=== PATIENT | female | born 1955 ===

== ENCOUNTER 2022-08-26 08:23 | Day surgery (SDC) | payer MEDICARE ==
[~2022-08-26] VITALS: Ht 157.5 cm; Wt 82.0 kg
[~2022-08-26 08:23] MED LIST: AMLO5 PO; CELE100 PO; Norco 5-325 Ta1 EACH PO; OMEP20ER PO; SERT50 PO
[2022-08-26] MEDS ORDERED: CETI5 (08:42)
[2022-08-26] MEDS ORDERED: CENTRUM SILVER1 EAC2 (08:43)
[2022-08-26] MEDS ORDERED: PROBIOTIC1 EA14 (08:43)
[2022-08-26 11:13] VITALS: BP 127/73
== END 2022-08-26 11:05 | disposition home or self-care (01) ==
LOC: ORSCSDS 08:23
PROVIDERS: Student in an Organized Health Care Education/Training Program
PROC: 0DBP8ZX Excision of Rectum, Via Natural or Artificial Opening Endoscopic, Diagnostic (ICD-10-PCS; principal; 2022-08-26 09:45)
PROC: 0DBL8ZX Excision of Transverse Colon, Via Natural or Artificial Opening Endoscopic, Diagnostic (ICD-10-PCS; principal; 2022-08-26 09:45)
PROC: 0DB98ZX Excision of Duodenum, Via Natural or Artificial Opening Endoscopic, Diagnostic (ICD-10-PCS; principal; 2022-08-26 09:45)
PROC: 0DBM8ZX Excision of Descending Colon, Via Natural or Artificial Opening Endoscopic, Diagnostic (ICD-10-PCS; principal; 2022-08-26 09:45)
PROC: 0DBH8ZX Excision of Cecum, Via Natural or Artificial Opening Endoscopic, Diagnostic (ICD-10-PCS; principal; 2022-08-26 09:45)
PROC: 0DBN8ZX Excision of Sigmoid Colon, Via Natural or Artificial Opening Endoscopic, Diagnostic (ICD-10-PCS; principal; 2022-08-26 09:45)
PROC: 0DB78ZX Excision of Stomach, Pylorus, Via Natural or Artificial Opening Endoscopic, Diagnostic (ICD-10-PCS; principal; 2022-08-26 09:45)
PROC: 0DBK8ZX Excision of Ascending Colon, Via Natural or Artificial Opening Endoscopic, Diagnostic (ICD-10-PCS; principal; 2022-08-26 09:45)
PROC: 0DB58ZX Excision of Esophagus, Via Natural or Artificial Opening Endoscopic, Diagnostic (ICD-10-PCS; principal; 2022-08-26 09:45)
DX: K21.9 Gastro-esophageal reflux disease without esophagitis (principal); K29.70 Gastritis, unspecified, without bleeding; K44.9 Diaphragmatic hernia without obstruction or gangrene; Z12.11 Encounter for screening for malignant neoplasm of colon; D12.3 Benign neoplasm of transverse colon; D12.2 Benign neoplasm of ascending colon; D12.0 Benign neoplasm of cecum; D12.4 Benign neoplasm of descending colon; D12.8 Benign neoplasm of rectum; K63.5 Polyp of colon; K62.1 Rectal polyp; F17.210 Nicotine dependence, cigarettes, uncomplicated; I10 Essential (primary) hypertension; Z79.899 Other long term (current) drug therapy
CPT/HCPCS: 88305; 88342; J2405; J2704; J7120

== ENCOUNTER 2022-12-16 14:00 | Inpatient (IN) | payer MEDICARE ==
[2022-12-16] VITALS (20 sets, daily range): BP systolic 89–124; BP diastolic 34–83
[~2022-12-16] VITALS: Ht 157.5 cm; Wt 82.3 kg
[~2022-12-16 14:00] MED LIST changes: +CENTRUM SILVER1 EAC2; +CETI5; +PROBIOTIC1 EA14
[2022-12-16 14:32] LABS: BASOPHILS ABSOLUTE AUTO 0.05 K/mm3 (0.00-0.23); BASOPHILS PERCENT AUTO 1 % (0-2); EOSINOPHILS ABSOLUTE AUTO 0.08 K/mm3 (0.00-0.68); EOSINOPHILS PERCENT AUTO 1 % (0-6); Hematocrit 40.1 % (33.0-51.0); Hemoglobin 13.2 g/dL (11.5-16.0); IMMATURE GRAN ABSOLUTE AUTO 0.02 K/mm3 (0.00-0.10); IMMATURE GRAN PERCENT AUTO 0 % (0-1); LYMPHOCYTES ABSOLUTE AUTO 2.46 K/mm3 (0.84-5.20); LYMPHOCYTES PERCENT AUTO 29 % (21-46); MONOCYTES ABSOLUTE AUTO 0.86 K/mm3 (0.16-1.47); MONOCYTES PERCENT AUTO 10 % (4-13); Mean Corpuscular HGB 32.5 pg (26.0-34.0); Mean Corpuscular HGB Conc 32.9 g/dL (31.5-36.5); Mean Corpuscular Volume 99 fL (80-100); Mean Platelet Volume 9.5 fL (9.1-12.4); NEUTROPHILS ABSOLUTE AUTO 5.14 K/mm3 (1.96-9.15); NEUTROPHILS PERCENT AUTO 60 % (41-73); Platelet Count 325 K/mm3 (150-400); RDW Coefficient Variation 13.9 % (11.7-14.2); Red Blood Cell Count 4.06 M/mm3 (3.80-5.20); White Blood Cell Count 8.61 K/mm3 (4.00-11.30)
[2022-12-16 14:54] LABS: Albumin, Blood 3.6 g/dL (3.4-5.0); Albumin/Globulin Ratio 1.2 (0.8-1.8); Bilirubin, Total 0.3 mg/dL (0.1-1.0); Bun/Creatinine Ratio 11.4 (12.0-20.0); Calcium, Blood 8.6 mg/dL (8.5-10.1); Creatinine, Blood 0.96 mg/dL (0.40-1.00); Globulin, Blood 3.1 g/dL (2.2-4.0); Potassium, Blood 3.7 mmol/L (3.5-5.5); Total Protein, Blood 6.7 g/dL (6.4-8.2)
[2022-12-16 18:58] LABS: Anti-Xa UFH, PHA Monitoring <0.10 IU/mL; International Normalized Ratio 1.07; Prothrombin Time Results 11.2 Sec (9.7-11.5)
--- NOTE | 2022-12-16 19:23 | NUR ---
SUMMARY Arrived to ICU 2 at 1841 from ED. Plan of care discussed with Dr Toscano ASSISTANT FITNESS MANAGER. Dr Stanton at bedside to request heparin drip started stat. Called pharmacist Angela for dosing parameters. New orders received. Bolus given. Drip started. Report given to Cece JUDD. Oriented pt to unit and plan of care including frequent lab draws and NPO after midnight. Pt verbalizes understanding. Sister and spouse at bedside deny additional questions.
--- NOTE | 2022-12-16 20:33 | NUR ---
ASSUMPTION OF CARE/ASSESSMENT: ASSUMED CARE OF PT AT 1900; PT IN BED, A&O X 4, FOLLOWING DIRECTIONS AND COMMUNICATING NEEDS APPROPRIATELY. PT CURERNTLY ON RA WITH SPO2 97<, LUNG SOUNDS ARE CLEAR THROUGHOUT, PT C/O PAIN WHEN TAKING A DEEP BREATH. PT HAS IRREGULAR RYTHYM ON MONITOR WITH FREQUENT PVC'S; HR 70-90'S, SBP 100-110'S, PT STATES SHE HAS SLIGHT CHEST DISCOMFORT WHEN TAKING TOO DEEP OF A BREATH BUT RESIDES QUICKLY; CONTINUOUS HAND MITER OPERATOR IN PLACE. HEPARIN GTT @ 15 UNITS/HR, NS @ 125 MLS/HR. PT EDUCATED REGARDING NOTIFYING THIS RN IF CHEST PAIN STARTS TO INCREASE OR IS PERSISTENT. HYPERACTIVE BOWEL SOUNDS IN ALL QUADRANTS; ABD ROUND, MILDLY DISTENDED AND PAINFUL IN THE EPIGASTRIC REGION. PT TOLERATING PO INTAKE AND WILL BE NPO AT MIDNIGHT IN PREP FOR ANGIOGRAM TOMORROW. PT ABLE TO AMBULATE TO TOILET IN ROOM; GAIT OBSERVED TO BE EVEN AND STEADY, PT DOES NOT APPEAR TO POSE A FALL RISK AT THIS TIME. URINE CLEAR AND YELLOW. SKIN OVERALL INTACT, PPP X 4, AND PT HAS FEVER AT 100.0; TYLENOL ADMINISTERED PER EMAR. PT DID COMPLAIN OF SLIGHT HEADACHE /. BED LOWERED, CALL LIGHT IN REACH.
[2022-12-17] VITALS (38 sets, daily range): BP systolic 80–153; BP diastolic 47–86
--- NOTE | 2022-12-17 01:06 | NUR ---
PT UPDATE: PT REPORTED 5/10 CHEST PAIN THAT WOKE HER UP FROM SLEEPING; PT DENIES ANY DIZZINESS OR HEADACHE BUT HAS MILD NAUSEA. RHYTHM ON MONITOR UNCHANGED, SBP STABLE. PT MEDICATED WITH ZOFRAN AND DILAUDID PER EMAR. PT EDUCATED TO CALL THIS RN IF PAIN WORSENS OR PERSISTS AFTER MED ADMINISTRATION.
--- NOTE | 2022-12-17 03:17 | NUR ---
PT UPDATE: PT IS NOW SUSTAINING SINUS BRADYCARDIA ON MONITOR WITH HR 43-60. BP STABLE WITH SBP 90'S. PT STATES MINIMAL CHEST PAIN, 1/10, AND CHEST PAIN HAS NOT BEEN WAKING HER UP FROM SLEEP AT THIS TIME. PT REMAINS A&O X 4, AND ALL OTHER VSS. PT DENIES DIZZINESS. WILL CONTINUE TO CLOSELY MONITOR.
[2022-12-17 03:22] LABS: BASOPHILS ABSOLUTE AUTO 0.06 K/mm3 (0.00-0.23); BASOPHILS PERCENT AUTO 1 % (0-2); EOSINOPHILS ABSOLUTE AUTO 0.12 K/mm3 (0.00-0.68); EOSINOPHILS PERCENT AUTO 2 % (0-6); Hematocrit 35.6 % (33.0-51.0); Hemoglobin 11.6 g/dL (11.5-16.0); IMMATURE GRAN ABSOLUTE AUTO 0.01 K/mm3 (0.00-0.10); IMMATURE GRAN PERCENT AUTO 0 % (0-1); LYMPHOCYTES ABSOLUTE AUTO 2.48 K/mm3 (0.84-5.20); LYMPHOCYTES PERCENT AUTO 31 % (21-46); MONOCYTES ABSOLUTE AUTO 0.63 K/mm3 (0.16-1.47); MONOCYTES PERCENT AUTO 8 % (4-13); Mean Corpuscular HGB 32.6 pg (26.0-34.0); Mean Corpuscular HGB Conc 32.6 g/dL (31.5-36.5); Mean Corpuscular Volume 100 fL (80-100); Mean Platelet Volume 9.7 fL (9.1-12.4); NEUTROPHILS ABSOLUTE AUTO 4.62 K/mm3 (1.96-9.15); NEUTROPHILS PERCENT AUTO 58 % (41-73); Platelet Count 307 K/mm3 (150-400); RDW Coefficient Variation 14.2 % (11.7-14.2); RDW Standard Deviation 51.8 fL (35.1-46.3); Red Blood Cell Count 3.56 M/mm3 (3.80-5.20); White Blood Cell Count 7.92 K/mm3 (4.00-11.30)
[2022-12-17 04:08] LABS: Alanine Aminotransfer (ALT/SGP 45 U/L (12-78); Albumin, Blood 3.2 g/dL (3.4-5.0); Albumin/Globulin Ratio 1.1 (0.8-1.8); Alk Phos 51 U/L (50-136); Anion Gap 3 mmol/L (6-16); Aspartate Aminotrans (AST/SGOT 58 U/L (12-37); Bilirubin, Total 0.4 mg/dL (0.1-1.0); Blood Urea Nitrogen 11 mg/dL (8-24); Bun/Creatinine Ratio 11.6 (12.0-20.0); CHOL/HDL RATIO 2.9; CO2, Blood 28 mmol/L (21-32); Calcium, Blood 7.9 mg/dL (8.5-10.1); Chloride, Blood 110 mmol/L (98-108); Cholesterol 149 mg/dL (50-200); Creatinine, Blood 0.95 mg/dL (0.40-1.00); Globulin, Blood 2.8 g/dL (2.2-4.0); Glomerular Filtration Rate 66 (60-); Glucose, Blood 104 mg/dL (70-99); HDL Cholesterol 52 mg/dL (>39); LDL/HDL RATIO 1.5; Low Density Lipoprotein Chol 79 mg/dL (0-110); Potassium, Blood 3.6 mmol/L (3.5-5.5); Sodium, Blood 141 mmol/L (136-145); Triglycerides 92 mg/dL (30-160); Very Low Density Lipoprot Chol 18 mg/dL (6-32)
--- NOTE | 2022-12-17 06:05 | NUR ---
SHIFT SUMMARY: PT REMAINS A&O X 4. SINUS POPPY ON MONITOR WITH HR 40-50'S; TWO INSTANCES PT HAS DROPPED DOWN TO 39 BUT HR QUICKLY GOES BACK UP INTO THE 40'S. PT STATES CHEST PAIN IS NOT WORSENING DURING THESE EPISODES AND STATES THAT IT HAS BEEN AT A 2/10. PT DOES NOT C/O DIZZINESS OR N/V DURING CHEST PAIN EPISODES AND NO OTHER RADIATING PAIN REPORTED. PT DENIES SOB AND HAS BEEN ON NC @ 2LPM WHILE SLEEPING DUE TO OBSERVED SLEEP APNEA. PT UP TO TOILET VARIOUS TIMES THROUGHOUT THE NIGHT; GAIT REMAINS EVEN AND STEADY. PT STATED THIS MORNING THAT SHE IS FEELING MORE WEAK THAN WHEN SHE FIRST ARRIVED TO THE HOSPITAL. HEPARIN GTT @ 15 UNITS/HR, NS @ 125 MLS/HR. BED LOWERED, CALL LIGHT IN REACH, WILL REPORT OFF TO ONCOMING RN.
--- NOTE | 2022-12-17 07:35 | NUR ---
Assumed care of pt at 0700. Report received from Cece JUDD. Pt is A&O x 4. Answers questions, follows commands, verbalizes needs. Pleasant and cooperative with care. SB per monitor, with rate in 40s. No ectopy noted. BP low/normal with MAP at 65. Dr Stanton in to see pt at change of shift and reports pt will likely be taken to cardiac mushroom laborer soon. experimental machining lab manager staff at bedside shortly afterwards. Pt updated her spouse that she is leaving for procedure.
--- NOTE | 2022-12-17 10:00 | NUR ---
Arrived from labor commissioner at [address], reportedly 10 mL air, as well as groin access that was closed using angioseal, per report. Color, sensation, pulses, capillary refill equal BUE/BLE. SB per monitor. BP stable. Heparin stopped and order DC'd. Per report from labor commissioner staff, patient has collateral circulation developing. Plan of care discussed with family. Around 0945, Dr Toscano in unit to state plan to transfer patient to higher level of care for ongoing management of NSTEMI. This RN placed call to Dr Stanton to obtain update. Provider states that patient will be transferring to higher level of care for RV infarct with bradycardia and hypotension and is not tolerating medical management.
--- NOTE | 2022-12-17 11:44 | NUR ---
BROUGHT PT DOWN TO HOUSE MANAGER FOR TEMP PACER PLACEMENT PER REQUEST FROM DR CRUZ AND ACCEPTING HOSPITAL THAT PT WILL BE TRANSFERED TO. PT IS AWAKE AND ALERT, DENIES ANY DIZZINESS OR LIGHTHEADEDNESS. CONTINUES TO C/O MILD MIDSTERNAL CHEST PAIN, CURRENTLY RATING 4/10. HR CURRENTLY 54, SYSTOLIC BP IN THE 120'S.
--- NOTE | 2022-12-17 14:49 | NUR ---
Patient arrived back from cathode maker at 1245 s/p transvenous pacemaker placement to right IJ for bradycardia management. Rate 45, output 5, sensing 2. Site dressed with several tegaderms, unable to visualize numerical placement marking due to dressing. insurance claims clerk called for transport. Pt's sister and spouse updated. Hector catheter placed for strict I/O during transport. TR band deflated per orders. Pt departed at 1350 with REACH by ambulance for transport to airport. Patient departed with personal belongings including purse which had her cellphone and eyedrops. Assigned to [address], Room [address]. Dr Toscano and Dr Stanton updated. Report called to DUTCH Gray.
== END 2022-12-17 13:50 | disposition short-term general hospital (02) | DRG 281 ==
LOC: ER 14:00 → ICUE 16:22
PROVIDERS: Internal Medicine Cardiovascular Disease; Physician Assistant; ADMIT Internal Medicine
PROC: 4A023N7 Measurement of Cardiac Sampling and Pressure, Left Heart, Percutaneous Approach (ICD-10-PCS; principal; 2022-12-17)
PROC: B2151ZZ Fluoroscopy of Left Heart using Low Osmolar Contrast (ICD-10-PCS; 2022-12-17)
PROC: B2111ZZ Fluoroscopy of Multiple Coronary Arteries using Low Osmolar Contrast (ICD-10-PCS; 2022-12-17)
DX: I21.4 Non-ST elevation (NSTEMI) myocardial infarction (principal); R64 Cachexia; K21.9 Gastro-esophageal reflux disease without esophagitis; I10 Essential (primary) hypertension; F32.A Depression, unspecified; F41.9 Anxiety disorder, unspecified; K44.9 Diaphragmatic hernia without obstruction or gangrene; I95.9 Hypotension, unspecified; E66.9 Obesity, unspecified; F10.20 Alcohol dependence, uncomplicated; G89.29 Other chronic pain; F17.210 Nicotine dependence, cigarettes, uncomplicated; Z68.32 Body mass index [BMI] 32.0-32.9, adult; Z88.8 Allergy status to other drugs, medicaments and biological substances; Z79.891 Long term (current) use of opiate analgesic; Z79.899 Other long term (current) drug therapy; Z98.890 Other specified postprocedural states
CPT/HCPCS: 33210; 51702; 71045; 71275; 76937; 80053; 80061; 83605; 83690; 84443; 84484; 85025; 85520; 85610; 85730; 93005; 93010; 93458; 96374-59; 99152; 99153; 99285-25; A9270; C1751; C1760; C1769; C1887; C1894; C8929; J0461; J1170; J1644; J2250; J2405; J3010; J7030; J7050; Q9957; Q9967